=== PATIENT | female | born 1940 | race Caucasian/White ===

== ENCOUNTER 2024-11-10 14:30 | Oncology outpatient (recurring) (ONCR) | payer MEDICARE, OTHER, SELFPAY ==
--- NOTE | 2024-11-10 10:30 | PETR_ITS ---
PROCEDURE INFORMATION: Exam: PET/CT Skull Base to Mid-thigh Exam date and time: 11/10/2024 3:17 PM Age: 84 years old Clinical indication: Condition or disease; Primary cancer: Ovarian cancer; Initial oncological staging assessment. LABS AND CLINICAL REPORTS: Glucose: 68 mg/dl Treatment strategy for malignancy (PET staging): Initial Staging (PI) TECHNIQUE: Imaging protocol: Following at least four-hour fasting and following the injection of radiopharmaceutical, low dose CT images were obtained. Then, PET images were obtained. Attenuation corrected images were constructed using the CT scan. Fused images of PET and CT were reviewed. The standardized uptake values (SUV) reported below are maximum values within a region of interest, expressed in gm/ml. Exam includes orbital meatal line to mid-thigh. SUV normalization method: BodyWeight Radiopharmaceutical: 10.93 mCi F-18 FDG (Fluorodeoxyglucose), IV. Time of imaging post radiopharmaceutical administration: 50 minutes Injection site: right ac COMPARISON: No relevant prior studies available. FINDINGS: Brain: On the nondedicated limited brain images there is no abnormal distribution of the radiotracer in the green and white matter. Pharynx: Normal distribution of the radiotracer in nasopharyngeal, and oropharyngeal structures. Larynx: Normal distribution of the radiotracer in laryngeal structures. Lungs, pleura and trachea: No abnormal uptake. 0.8 cm calcified granuloma in the right upper lobe. Non FDG avid 0.6 cm noncalcified right lower lobe nodule on axial image 92 is nonspecific, too small to characterize by PET. No pleural effusion. Heart: Normal physiologic uptake. Mild cardiomegaly. Mild coronary artery calcification is present. There is no pericardial effusion. Mediastinal space: No abnormal uptake. Liver: Normal size without abnormal radiotracer uptake. Gallbladder and biliary ducts: No abnormal uptake. Status post cholecystectomy. Pancreas: Normal distribution of radiotracer. Spleen: Normal size without abnormal radiotracer uptake. Multiple calcified granulomas. Adrenal glands: No abnormal uptake. No nodules. Kidneys and ureters: Normal physiologic uptake. No hydronephrosis. Stomach and bowel: No abnormal uptake. Intraperitoneal and retroperitoneal spaces: Intense uptake up to 17.5 SUV within diffuse nodularity in the cul-de-sac representing multiple implants of peritoneal carcinomatosis. Multiple additional implants of carcinomatosis adjacent to sigmoid colon and within the mid sigmoid measuring up to 16.1 SUV. Implants of omental carcinomatosis on the right side of the omentum with maximum thickness of 1.3 cm measure up to 8 SUV (axial image 158). Left upper omental metastasis on axial image 135 with maximal thickness of 1.3 cm measures 6.6 SUV. A couple of tiny implants of peritoneal carcinomatosis on the liver capsule inferiorly in the right hepatic lobe ( axial image 159 and 144) measure up to 4.5 SUV. There is small ascites in the pelvis. Bladder: Normal physiologic uptake. Reproductive: Abnormal uptake in both ovaries with no significant enlargement (14.4 SUV in the left ovary on axial image 200, 14.6 SUV in the right ovary on image 199). Vasculature: No abnormal uptake. No aortic aneurysm. Lymph nodes: Subcentimeter superior rectal/presacral nodule on axial image 199 measures 8.7 SUV. A couple of left mesenteric lymph nodes on axial image 181 measure 11.3 SUV. Right lower mesenteric nodule on axial image 117 measures 9.4 SUV. Midline upper mesenteric lymph node on image 137 measures 8.3 SUV. Portacaval lymph node on axial image 129 with a short axis of 1.1 cm measures 9.2 SUV. Borderline uptake of 3.7 SUV within normal-sized mediastinal and bilateral hilar lymph nodes is indeterminate and may be benign reactive in nature or less likely malignant. A couple of mildly FDG-avid normal-sized right axillary lymph nodes with the highest uptake 3.7 SUV (axial images 62 and 72) are nonspecific. No FDG avid lymphadenopathy in the head, neck, left axilla, and the groins. There is sequela of exposure to granulomatous disease with calcified granulomas in the right hilar lymph nodes. 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 Severe chronic compression fracture of T12 with anterior wedging and slight retropulsion. Degenerative anterolisthesis of L5. Developmental variant of 6 non rib-bearing vertebral bodies in the lumbar spine in keeping with transitional anatomy. Soft tissues: Benign physiologic uptake in bilateral scalene muscles. METRICS: Mediastinal blood pool maximal uptake is 2.2 SUV. Liver maximal uptake is 2.8 SUV. PET/PET skull to thigh INIT [id number] IMPRESSION: Disseminated malignancy with abnormal uptake in both ovaries with no significant enlargement (up to 14.6 SUV), in multiple implants of peritoneal carcinomatosis most prominent in the pelvis (up to 17.5 SUV), in implants of omental carcinomatosis (up to 8 SUV), and in small volume metastatic lymphadenopathy in the mesentery and the portacaval area (up to 11.3 SUV). Small ascites in the pelvis. Slightly increased uptake within normal sized mediastinal and bilateral hilar lymph nodes and in a couple of normal-sized right axillary lymph nodes (3.7 SUV) is indeterminate and can be benign reactive or malignant. There is sequela of exposure to granulomatous disease with calcified granulomas in the right hilum, right lung, and the spleen. 0.6 cm non FDG avid noncalcified lung nodule in the right lower lobe is nonspecific, too small for reliable characterization by PET.
== END 2024-11-19 23:59 | disposition home or self-care (01) ==
LOC: ONCMED 11-13 09:44
PROVIDERS: PCP General Practice; Visit Provider Internal Medicine Medical Oncology
DX: C56.3 Malignant neoplasm of bilateral ovaries; R93.89 Abnormal findings on diagnostic imaging of other specified body structures; R59.0 Localized enlarged lymph nodes; R18.8 Other ascites; J84.10 Pulmonary fibrosis, unspecified; I51.7 Cardiomegaly; I25.10 Atherosclerotic heart disease of native coronary artery without angina pectoris; Z90.49 Acquired absence of other specified parts of digestive tract; D73.89 Other diseases of spleen; R93.7 Abnormal findings on diagnostic imaging of other parts of musculoskeletal system; M48.54XD Collapsed vertebra, not elsewhere classified, thoracic region, subsequent encounter for fracture with routine healing; M43.16 Spondylolisthesis, lumbar region; Z53.9 Procedure and treatment not carried out, unspecified reason
CPT/HCPCS: 78815; 99205; A9552